=== PATIENT | female | born 1960 | race Caucasian/White ===

== ENCOUNTER 2019-02-24 06:15 | Day surgery (SDC) | payer OTHER ==
[~2019-02-24] VITALS: Ht 157.5 cm; Wt 54.4 kg
[2019-02-24 06:28] VITALS: BP 148/81
[2019-02-24 10:36] VITALS: BP 119/74
== END 2019-02-24 10:15 | disposition home or self-care (01) ==
LOC: GI 06:15 → OR 08:00 → GI 08:00
DX: K44.9 Diaphragmatic hernia without obstruction or gangrene (principal); K21.9 Gastro-esophageal reflux disease without esophagitis; K59.00 Constipation, unspecified; Z79.899 Other long term (current) drug therapy; Z86.79 Personal history of other diseases of the circulatory system; Z98.890 Other specified postprocedural states
CPT/HCPCS: 43235; J1200; J1610; J2250; J2310; J3010; J3490